=== PATIENT | female | born 2000 | race Two or more races ===

== ENCOUNTER 2025-06-05 23:39 | Emergency (ER) | payer MEDICAID, SELFPAY ==
[2025-06-05 23:40] VITALS: BP 135/76; PULSE 100; RESP 20; TEMP 36.8; O2SAT 99
[2025-06-05 23:42] VITALS: BMI 31.6
[2025-06-05 23:53] VITALS: BP 134/88; PULSE 80; RESP 18; TEMP 36.9; O2SAT 97
[2025-06-05 23:55] VITALS: BMI 31.6
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
== END 2025-06-06 00:15 ==
PROVIDERS: Emergency Provider Emergency Medicine
DX: Z02.89 Encounter for other administrative examinations (principal); Z04.1 Encounter for examination and observation following transport accident
CPT/HCPCS: 99282